=== PATIENT | female | born 2005 | race Hispanic/Latino ===

== ENCOUNTER 2025-03-04 12:49 | Emergency (ER) | payer BC, SELFPAY ==
--- NOTE | ~2025-03-04 | CT_ITS ---
EXAMINATION: CT abdomen pelvis w con DATE: 03/04/2025 16:10 INDICATION: RIGHT UPPER QUADRANT PAIN TECHNIQUE: Computed tomography (CT) of the abdomen and pelvis was performed with 100 mL Omnipaque-350 intravenous contrast. Automated exposure control and iterative reconstruction technique were employe d. The dose-length product was 1650.23 mGy-cm. COMPARISON: None. FINDINGS: Lower thorax: Unremarkable Liver: Enlarged. Diffusely low-density parenchyma. Biliary/Gallbladder: Gallbladder is normal. No bile duct dilation. Pancreas: No mass or duct dilation. Spleen: Normal. Adrenals:No mass. Kidneys: No suspicious mass, obstructing stone, or hydronephrosis. GI tract: No small or large bowel dilation. Normal appendix. Minimal scattered diverticuli, without C T evidence of diverticulitis. Mesentery/Peritoneum: No ascites, mass, or free air. Retroperitoneum: No mass. Pelvis: Incompletely distended urinary bladder. Normal uterus and bilateral ovaries. Simple appearing 3.8 and 3.6 cm left ovarian cysts versus a single mildly lobulated cyst. Soft Tissues: Small uncomplicated appearing fat-containing umbilical hernia. Bones: No acute osseous finding. IMPRESSION: Hepatomegaly with steatosis. Adjacent 3.8 and 3.6 cm simple left cysts, versus a mildly lobulated single ovarian cyst. Consider no nemergent, but timely outpatient transvaginal pelvic sonography for further characterization. Reviewed, dictated and finalized at location K. IMPRESSION: Hepatomegaly with steatosis. Adjacent 3.8 and 3.6 cm simple left cysts, versus a mildly lobulated single ova adalberto cyst. Consider nonemergent, but timely outpatient transvaginal pelvic sono graphy for further characterization.
[2025-03-04 13:01] VITALS: BP 154/98; PULSE 102; RESP 18; TEMP 36.6; O2SAT 98
--- NOTE | 2025-03-04 14:42 | ED_ITS ---
HPI - Abdominal Pain General Chief Complaint: Abdominal Pain Stated Complaint: RUQ abd. pain x1 day Time Seen by Provider: 03/04/25 14:38 Source: patient and family Mode of arrival: ambulatory Limitations: no limitations History of Present Illness HPI narrative: 89 YEARS OLD WHITE FEMALE CAME TO THE ED COMPLAINING OF RIGHT UPPER QUADRANT PAIN RADIATING TO RIGHT FLANK AREA, WORSE WITH STRESS AND EATING, NOTHING MAKE IT BETTER. PRESSURE TYPE, HISTORY OF IRREGULAR CYCLES, LAST 1 WAS AT THE END OF DECEMBER. PATIENT IS NOT SEXUALLY ACTIVE. NO HISTORY OF ABDOMINAL SURGERY, DOES NOT TAKE MEDICINE AT HOME, DOES NOT SMOKE OR DRINK OR USE DRUGS. Related Data Allergies Allergy/AdvReac Type Severity Reaction Status Date / Time No Known Allergies Allergy Mild Verified 03/04/25 14:06 Review of Systems 2 Review of Systems: All systems reviewed & are unremarkable except as noted in HPI and below Exam 2 Narrative: GENERAL APPEARANCE: WELL-DEVELOPED, WELL-NOURISHED SKIN: NORMAL COLOR HEAD: NORMOCEPHALIC, NONTRAUMATIC EYES: CLEAR CONJUNCTIVA ENT: OROPHARYNX NORMAL, EARS NORMAL, NOSE NORMAL NECK: SUPPLE, NONTENDER CHEST AND RESPIRATORY: AIRWAY PATENT, NO RESPIRATORY DISTRESS, NO ACCESSORY MUSCLE USE HEART: REGULAR RATE/RHYTHM ABDOMEN: SOFT, NONTENDER, NO ORGANOMEGALY, QUIET BOWEL SOUNDS VASCULAR: NORMAL PERIPHERAL PULSES, NORMAL CAPILLARY REFILL. 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 TESTED, NO GROSS MOTOR DEFICIT Course Vital Signs Vital signs: Vital Signs Temperature 36.6 C 03/04/25 13:01 Pulse Rate 102 H 03/04/25 13:01 Respiratory Rate 18 03/04/25 13:01 Blood Pressure 154/98 H 03/04/25 13:01 Pulse Oximetry 98 03/04/25 13:01 Temperature 36.6 C 03/04/25 13:01 Pulse Rate 99 03/04/25 15:37 Respiratory Rate 18 03/04/25 15:37 Blood Pressure 125/60 03/04/25 15:37 Pulse Oximetry 99 03/04/25 15:37 MDM - Abdominal Pain MDM Narrative Medical decision making narrative: PATIENT CAME WITH ABDOMINAL PAIN VITAL SIGNS SHOWING BLOOD PRESSURE 154/98, HEART RATE 102, PHYSICAL EXAMINATION IS UNREMARKABLE DIFFERENTIAL DIAGNOSIS INCLUDE ANXIETY, STRESS RELATED SYMPTOMS, APPENDICITIS, CHOLECYSTITIS, COLITIS, URINARY TRACT INFECTION BLOOD WORKUP TODAY INCLUDES CBC, CMP, LIPASE SHOWED WBC OF 12.9, AST 67, ALT 57, OTHERWISE WITHIN NORMAL LIMIT CT ABDOMEN AND PELVIS WITH IV CONTRAST SHOWED LEFT OVARIAN CYST, HEPATIC STEATOSIS OTHERWISE WITHIN NORMAL LIMIT DIAGNOSIS ANXIETY INDUCING ABDOMINAL PAIN THE PT WAS DISCHARGED TO HOME.THE PT,S CONDITION UPON DISCHARGE WAS FAIR,EDUCATION WAS PROVIDED TO THE PT IN REFERENCE TO THE FINAL IMPRESSION,DISCHARGE STUDY RESULTS,TREATMENT,PROGNOSIS AND NEED FOR FOLLOW UP . Differential Diagnosis Differential diagnosis: Likely other ( ABOVE) Medical Records Attestation: I reviewed the patient's medical records. Lab Data Attestation: I reviewed the patient's lab results. 03/04/25 14:58 03/04/25 14:58 Labs: Lab Results 03/04/25 03/04/25 Range/Units 14:58 15:23 WBC 12.9 H (4.5-10.0) K/mm3 RBC 5.21 (4.2-5.4) M/mm3 Hgb 12.5 (12.0-15.0) g/dL Hct 40.2 (37.0-47.0) % MCV 77.2 L (80-100) fl MCH 24.0 L (26-34) pg MCHC 31.1 L (32-36) g/dl RDW 15.9 H (11.5-14.5) % Plt Count 432 H (150-375) k/mm3 MPV 8.6 (7.4-10.4) fl Immature Gran % (Auto) 0.5 (0-0.5) % Neut % (Auto) 68.1 (45.5-73.1) % Lymph % (Auto) 21.0 (18.3-44.2) % Roberts % (Auto) 5.4 (2.6-8.5) % Eos % (Auto) 4.0 (0-4.4) % Baso % (Auto) 1.0 (0.2-1.2) % Lymph # (Auto) 2.70 (0.9-3.2) K/mm3 Roberts # (Auto) 0.7 H (0.1-0.6) K/mm3 Eos # (Auto) 0.5 H (0-0.3) K/mm3 Baso # (Auto) 0.1 (0.0-0.1) K/mm3 Abs Immat Gran (auto) 0.07 H (0.00-0.031) K/mm3 Absolute Neuts (auto) 8.8 H (1.3-6.7) K/mm3 Absolute Nucleated RBC 0.000 (0.0-0.012) K/mm3 Nucleated RBC % 0.0 (0.0-0.2) % Sodium 139 (134-143) mmol/L Potassium 3.8 (3.4-5.0) mmol/L Chloride 104 (98-107) mmol/L Carbon Dioxide 25 (22-30) mmol/L Anion Gap 10 (4-12) mmol/L BUN 10 (8-21) mg/dL Creatinine 0.62 L (0.7-1.0) mg/dL Estim Creat Clear Calc Not Reportable Estimated GFR > 60 (59 - ) Glucose 90 (65-110) mg/dL Calcium 9.4 (8.9-10.7) mg/dL Total Bilirubin 0.2 (0.2-1.3) mg/dL AST 67 H (14-36) U/L ALT 57 H (6-35) U/L Alkaline Phosphatase 114 (45-116) U/L Total Protein 7.9 (6.3-8.6) g/dL Albumin 4.5 (3.7-5.6) g/dL Lipase 60 (23-300) U/L POC Urine HCG, Qual Negative (Negative) Imaging Data Radiologist's impression: ITS Impressions Abdomen/Pelvis CT 03/04/25 16:33 IMPRESSION: Hepatomegaly with steatosis. Adjacent 3.8 and 3.6 cm simple left cysts, versus a mildly lobulated single ovarian cyst. Consider nonemergent, but timely outpatient transvaginal pelvic sonography for further characterization. Critical Care Time Critical Care Time Critical Care Time: No Discharge Plan Discharge Clinical Impression: Right sided abdominal pain, Cyst of left ovary, Hepatic steatosis Patient Disposition: Home Condition: Stable Instructions: Ovarian Cyst (ED), Non-Alcoholic Fatty Liver Disease (ED), Abdominal Pain (ED) Additional Instructions: RETURN IF SYMPTOMS ARE WORSENING , CALL YOUR FAMILY PHYSICIAN FOR APPOINTMENT, TAKE TYLENOL NEEDED FOR ACHES AND PAIN, CONTINUE HOME MEDICATIONS. Patient Language: Turkish Follow-up/Referrals: PHYSICIAN NOT ON STAFF,NONSTAFF [Primary Care Provider] - Benjamin Hilton MD [Physician] - 03/07/25
--- OUTSIDE RECORDS SUMMARY | 2025-03-04 14:45 | XMS_ITS | Clinical Summary ---
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 This disclosure is being madepursuant to the Care Everywhere program and may not contain all information available regarding this patient. Last updated 18.[facility] Allergies No known active allergies Medications * Be aware that medications may not be up to date on this document. Alwaysverify current medications with the patient. polyethylene glycol 3350 (MIRALAX) packetIndicatio ns:Constipation Take 17 g by mouth once daily. 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 Gender Identity Not on file Sexual Orientation Not on file Last Filed Vital Signs Vital Sign Reading Time Taken Comments Blood Pressure 104/42 05/25/2012 1:00 PM CDT Pulse 88 07/06/2011 12:30 PM CDT Temperature 36.8 C (98.3 F) 07/06/2011 10:38 AM CDT Respiratory Rate 18 07/06/2011 12:3 0 PM CDT Oxygen Saturation 97% 07/06/2011 10: 20 AM CDT Inhaled Oxygen Concentration - - Weight 44.2 kg (97 lb 7.1 oz) 05/25/2012 1:00 PM CDT Height 130.3 cm (4' 3.3) 05/25/2012 1:00 PM CDT Body Mass Index 26.03 05/25/2012 1:00 PM CDT Body Mass Index Percentile 99.76% 05/25/2012 1:0 0 PM CDT Growth Chart: [facility] (Girls, 2- 20 Years) Plan of Treatment Health Maintenance Due Date Last Done Comments HIV SCREENING 2020 HPV VACCINE (1 - 3-dose series) 2020 CHLAMYDIA/GONORRHEA SCREENING 2021 MENINGOCOCCAL (Group B) VACC INE SHARED DECISION-MAKING (1 of 2 - Standard) 2021 HEPATITIS C SCREENING 07/24/2023 COVID-19 VACCINE (1 - 2023-2 5 season) 2024 DTAP/TDAP/TD VACCINES (1 - Tdap) 2024 HEPATITIS B VACCINE (1 of 3 - 19+ 3-dose series) 2024 DEPRESSION SCREENING 09/27/2024 INFLUENZA VACCINE (Season Ended) 2025 ZOSTER VACCINE (1 of 2) 2055 HIB VACCINE Aged Out No longer eligi ble based on patient's age to complete this topic MENINGOCOCCAL GROUPS A/C/Y/W VACCINE Aged Out No longer eligible b ased on patient's age to complete this topic PNEUMOCOCCAL VACCINE Aged Out No long er eligible based on patient's age to complete this topic Insurance [place] Care Teams Wire Frame Lamp Shade Maker Relationship Specialty Start Date End Date Vini Jain MD [address] [place] [id number] PCP - General 06/22/11
[2025-03-04 15:03] LABS: Basophils Absolute Auto 0.1 K/mm3 (0.0-0.1); Eosinophils Absolute Auto 0.5 K/mm3 (0-0.3); Hematocrit 40.2 % (37.0-47.0); Hemoglobin 12.5 g/dL (12.0-15.0); Immature Granulocyte Absolute 0.07 K/mm3 (0.00-0.031); Immature Granulocyte Percent A 0.5 % (0-0.5); Mean Corpuscular HGB Conc 31.1 g/dl (32-36); Mean Corpuscular Volume 77.2 fl (80-100); Mean Platelet Volume 8.6 fl (7.4-10.4); Monocytes Absolute Auto 0.7 K/mm3 (0.1-0.6); Monocytes Percent Auto 5.4 % (2.6-8.5); Neutrophils Absolute Auto 8.8 K/mm3 (1.3-6.7); Neutrophils Percent Auto 68.1 % (45.5-73.1); Platelet Count Result 432 k/mm3 (150-375); Red Blood Count 5.21 M/mm3 (4.2-5.4); Red Cell Distribution Width 15.9 % (11.5-14.5); White Blood Count 12.9 K/mm3 (4.5-10.0)
[2025-03-04 15:13] LABS: Alanine Aminotransferase 57 U/L (6-35); Albumin Level 4.5 g/dL (3.7-5.6); Alkaline Phosphatase 114 U/L (45-116); Anion Gap 10 mmol/L (4-12); Aspartate Amino Transferase 67 U/L (14-36); Bilirubin,Total 0.2 mg/dL (0.2-1.3); Blood Urea Nitrogen 10 mg/dL (8-21); Calcium 9.4 mg/dL (8.9-10.7); Carbon Dioxide 25 mmol/L (22-30); Chloride 104 mmol/L (98-107); Estimated Glomerular Filt Rate > 60; Glucose 90 mg/dL (65-110); Lipase 60 U/L (23-300); Potassium 3.8 mmol/L (3.4-5.0); Sodium 139 mmol/L (134-143); Total Protein 7.9 g/dL (6.3-8.6)
[2025-03-04] MEDS: SODIUM CHLORIDE 0.9% IV 1,000 ML 999 ML IV CONT (15:29)
[2025-03-04] MEDS: ONDANSETRON INJ 4 MG/2 ML VIAL IV PUSH (15:29)
[2025-03-04] MEDS: MORPHINE SULFATE (*CRX) 4 MG/ML INJ IV PUSH (15:30)
[2025-03-04 15:37] VITALS: BP 125/60; PULSE 99; RESP 18; O2SAT 99
[2025-03-04 15:39] LABS: BEDSIDEPREGUCG Negative (Negative)
== END 2025-03-04 18:56 | disposition home or self-care (01) ==
PROVIDERS: Emergency Provider Emergency Medicine
DX: R10.11 Right upper quadrant pain (principal); N83.202 Unspecified ovarian cyst, left side; K76.0 Fatty (change of) liver, not elsewhere classified
CPT/HCPCS: 36415; 74177; 80053; 81025; 83690; 85025; 96361; 96374; 96375; 99284; J2270; J2405; J7030; Q9967